=== PATIENT | female | born 1990 | race Caucasian/White ===

== ENCOUNTER 2023-11-08 11:44 | Emergency (ER) | payer OTHER ==
[2023-11-08 11:59] VITALS: RESP 18; TEMP 98.7; BMI 28.0
[2023-11-08] MEDS ORDERED: ACETAMINOPHEN INJECTION 100 ML IVPB ONE (12:58)
[2023-11-08 13:00] LABS: BASO % 0.7 % (0-2.0); HEMATOCRIT 29.1 % (32.4-45.2); HEMOGLOBIN 9.3 GM/dL (10.7-15.3); LYMPH % 21.8 % (8-40); MCH 24.3 pg (25.7-33.7); MEAN CELL VOLUME 75.9 fl (80-96); MEAN PLT VOLUME 7.7 fl (7.5-11.1); MONO % 5.2 % (3.8-10.2); NEUT % 71.3 % (42.8-82.8); PLATELET COUNT 229 10^3/uL (134-434); RBC 3.84 M/mm3 (3.60-5.2); WHITE BLOOD COUNT 6.6 K/mm3 (4.0-10.0)
[2023-11-08 13:01] LABS: EPI CELLS >36 /uL (0-25.1); HYALINE CASTS 2 /uL (0-3.1); PH,URINE 6.5 (5.0-8.0); URINE APPEARANCE CLOUDY; URINE BACTERIA 81 /uL (0-1359); URINE BILIRUBIN NEGATIVE (NEGATIVE); URINE COLOR YELLOW; URINE GLUCOSE (UA) NEGATIVE (NEGATIVE); URINE KETONE TRACE (NEGATIVE); URINE LEUK ESTERASE 1+ (NEGATIVE); URINE NITRITE NEGATIVE (NEGATIVE); URINE PROTEIN NEGATIVE (NEGATIVE); URINE RBC 18 /uL (0-23.9); URINE WBC 81 /uL (0-25.8)
[2023-11-08] MEDS: ACETAMINOPHEN 1000 MG/100 ML BAG IVPB ONE (13:07)
[2023-11-08] MEDS: DEXTROSE 5%-NORMAL SALINE 1,000 ML IV ONE (13:07)
[2023-11-08 13:23] LABS: ACTIVATED PTT 26.5 SECONDS (25.2-36.5); INR 1.01 (0.83-1.09); PROTHROMBIN TIME (PATIENT) 11.4 SEC (9.7-13.0)
[2023-11-08 13:31] LABS: POTASSIUM 3.8 mmol/L (3.5-5.1)
[2023-11-08 13:33] LABS: ALBUMIN 3.2 g/dl (3.4-5.0); BLOOD UREA NITROGEN 9.8 mg/dL (7-18); CALCIUM 9.2 mg/dL (8.5-10.1); MAGNESIUM 1.9 mg/dL (1.8-2.4)
[2023-11-08 13:36] LABS: CREATININE 0.5 mg/dL (0.55-1.3)
[2023-11-08 13:38] LABS: BILIRUBIN,TOTAL 0.3 mg/dL (0.2-1); TOT PROT 6.8 g/dl (6.4-8.2)
[2023-11-08 13:44] LABS: EPI CELLS >36 /uL (0-25.1); HYALINE CASTS 2 /uL (0-3.1); PH,URINE 6.5 (5.0-8.0); URINE APPEARANCE CLOUDY; URINE BACTERIA 77 /uL (0-1359); URINE BILIRUBIN NEGATIVE (NEGATIVE); URINE COLOR YELLOW; URINE GLUCOSE (UA) NEGATIVE (NEGATIVE); URINE KETONE TRACE (NEGATIVE); URINE LEUK ESTERASE 1+ (NEGATIVE); URINE NITRITE NEGATIVE (NEGATIVE); URINE PROTEIN NEGATIVE (NEGATIVE); URINE RBC 20 /uL (0-23.9); URINE WBC 73 /uL (0-25.8)
[2023-11-08] MEDS ORDERED: CEPHALEXIN MONOHYDRATE 500 MG CAPSULE (UD) ONE (14:47)
[2023-11-08] MEDS: ONDANSETRON 4 MG/2 ML VIAL IVPUSH ONE (14:50)
[2023-11-08] MEDS: CEPHALEXIN MONOHYDRATE 500 MG CAPSULE (UD) PO ONE (14:50)
[2023-11-08 15:23] VITALS: BP 99/55; PULSE 68
== END 2023-11-08 15:24 | disposition home or self-care (01) ==
LOC: JER 11:44
PROC: 3E033NZ Introduction of Analgesics, Hypnotics, Sedatives into Peripheral Vein, Percutaneous Approach (ICD-10-PCS; principal; 2023-11-08)
PROC: 3E0337Z Introduction of Electrolytic and Water Balance Substance into Peripheral Vein, Percutaneous Approach (ICD-10-PCS; 2023-11-08)
DX: O21.0 Mild hyperemesis gravidarum (principal); O26.891 Other specified pregnancy related conditions, first trimester; R19.7 Diarrhea, unspecified; Z3A.12 12 weeks gestation of pregnancy
CPT/HCPCS: 36415; 80053; 81003; 83735; 85025; 85610; 85730; 86850; 86900; 86901; 87086; 93005; 93010; 99284-25; J0131

== ENCOUNTER 2023-12-13 16:55 | Emergency (ER) | payer OTHER ==
[2023-12-13 17:01] VITALS: BMI 31.8
[2023-12-13] MEDS: SODIUM CHLORIDE 0.9% 500 ML INFUS.BAG IV ONE (17:51)
[2023-12-13 18:15] LABS: BASO % 0.9 % (0-2.0); EOS % 1.7 % (0-4.5); HEMATOCRIT 29.8 % (32.4-45.2); HEMOGLOBIN 9.4 GM/dL (10.7-15.3); LYMPH % 25.1 % (8-40); MCH 23.8 pg (25.7-33.7); MCHC 31.4 g/dl (32.0-36.0); MEAN CELL VOLUME 75.8 fl (80-96); MEAN PLT VOLUME 7.6 fl (7.5-11.1); NEUT % 66.3 % (42.8-82.8); PLATELET COUNT 245 10^3/uL (134-434); RBC 3.93 M/mm3 (3.60-5.2); RDW 17.3 % (11.6-15.6); WHITE BLOOD COUNT 9.2 K/mm3 (4.0-10.0)
[2023-12-13 18:20] LABS: INR 0.96 (0.83-1.09)
[2023-12-13 18:33] LABS: POTASSIUM 3.8 mmol/L (3.5-5.1)
[2023-12-13 18:35] LABS: ALBUMIN 3.1 g/dl (3.4-5.0); BLOOD UREA NITROGEN 8.3 mg/dL (7-18); CALCIUM 8.9 mg/dL (8.5-10.1)
[2023-12-13 18:38] LABS: CREATININE 0.4 mg/dL (0.55-1.3)
[2023-12-13 18:40] LABS: BILIRUBIN,TOTAL 0.2 mg/dL (0.2-1); TOT PROT 7.1 g/dl (6.4-8.2)
[2023-12-13 23:50] VITALS: BP 98/61; PULSE 66; RESP 18; TEMP 97.6
[2023-12-14] MEDS ORDERED: ACETAMINOPHEN 325 MG TABLET (FP) ONE (00:43)
[2023-12-14] MEDS: ACETAMINOPHEN 500 MG TABLET (FP) PO STA (00:46)
== END 2023-12-14 01:43 | disposition home or self-care (01) ==
LOC: JER 16:55
DX: O26.892 Other specified pregnancy related conditions, second trimester (principal); R10.31 Right lower quadrant pain; O21.9 Vomiting of pregnancy, unspecified; Z3A.18 18 weeks gestation of pregnancy
CPT/HCPCS: 36415; 72195-TC; 74181-TC; 76801-TC; 76815; 80053; 83690; 85025; 85610; 86850; 86900; 86901; 99285-25

== ENCOUNTER 2024-01-22 17:44 | Emergency (ER) | payer OTHER ==
[2024-01-22 17:56] VITALS: BMI 30.6
[2024-01-22 19:07] VITALS: BP 103/58; PULSE 75; RESP 20; TEMP 98.2
[2024-01-22 20:17] LABS: EPI CELLS 10 /uL (0-25.1); HYALINE CASTS 0 /uL (0-3.1); URINE APPEARANCE CLEAR; URINE BACTERIA 629 /uL (0-1359); URINE BILIRUBIN NEGATIVE (NEGATIVE); URINE COLOR YELLOW; URINE GLUCOSE (UA) NEGATIVE (NEGATIVE); URINE KETONE NEGATIVE (NEGATIVE); URINE LEUK ESTERASE 1+ (NEGATIVE); URINE NITRITE NEGATIVE (NEGATIVE); URINE PROTEIN NEGATIVE (NEGATIVE); URINE RBC 4 /uL (0-23.9); URINE WBC 29 /uL (0-25.8)
== END 2024-01-22 21:10 | disposition home or self-care (01) ==
LOC: JER 17:44
DX: O26.892 Other specified pregnancy related conditions, second trimester (principal); R10.32 Left lower quadrant pain; R10.2 Pelvic and perineal pain; Z3A.23 23 weeks gestation of pregnancy
CPT/HCPCS: 81003; 99283-25

== ENCOUNTER 2024-05-05 20:15 | Inpatient (IN) | payer OTHER ==
[2024-05-05 21:45] VITALS: BMI 35.4
[2024-05-05] MEDS: DEXTROSE 5%-LACTATED RINGERS 1,000 ML IV SCH (21:45)
[2024-05-05 22:20] LABS: BASO % 0.4 % (0-2.0); EOS % 1.1 % (0-4.5); HEMATOCRIT 26.8 % (32.4-45.2); HEMOGLOBIN 8.3 GM/dL (10.7-15.3); LYMPH % 26.2 % (8-40); MCH 25.3 pg (25.7-33.7); MCHC 31.1 g/dl (32.0-36.0); MEAN CELL VOLUME 81.4 fl (80-96); MONO % 4.4 % (3.8-10.2); NEUT % 67.9 % (42.8-82.8); PLATELET COUNT 93 10^3/uL (134-434); RBC 3.29 M/mm3 (3.60-5.2); WHITE BLOOD COUNT 7.5 K/mm3 (4.0-10.0)
[2024-05-05 22:33] LABS: INR 0.91 (0.83-1.09); PROTHROMBIN TIME (PATIENT) 10.5 SEC (9.7-13.0)
[2024-05-05 22:35] LABS: ACTIVATED PTT 29.8 SECONDS (25.2-36.5)
[2024-05-05 22:40] LABS: URINE APPEARANCE CLEAR; URINE COLOR YELLOW
[2024-05-05 22:41] LABS: PH,URINE 6.5 (5.0-8.0); URINE BILIRUBIN NEGATIVE (NEGATIVE); URINE GLUCOSE (UA) NEGATIVE (NEGATIVE); URINE KETONE NEGATIVE (NEGATIVE); URINE LEUK ESTERASE 1+ (NEGATIVE); URINE NITRITE NEGATIVE (NEGATIVE); URINE PROTEIN 100 (NEGATIVE)
[2024-05-05 22:48] LABS: POTASSIUM 3.9 mmol/L (3.5-5.1)
[2024-05-05 22:50] LABS: CALCIUM 7.8 mg/dL (8.5-10.1)
[2024-05-05 22:51] LABS: BLOOD UREA NITROGEN 10.9 mg/dL (7-18)
[2024-05-05 22:54] LABS: CREATININE 0.5 mg/dL (0.55-1.3)
[2024-05-05 22:56] LABS: BILIRUBIN,TOTAL 0.2 mg/dL (0.2-1); TOT PROT 5.1 g/dl (6.4-8.2)
[2024-05-06] MEDS ORDERED: SODIUM CHLORIDE 0.9% P/F 10 ML VIAL IJ ONE (00:03)
[2024-05-06] MEDS ORDERED: ceFAZolin SODIUM 1 GM VIAL ONE (00:03)
[2024-05-06] MEDS ORDERED: DEXAMETHASONE SOD PHOSPHATE 4 MG/1 ML VIAL ONE (00:03)
[2024-05-06] MEDS ORDERED: ONDANSETRON 4 MG/2 ML VIAL ONE (00:03)
[2024-05-06] MEDS ORDERED: KETOROLAC TROMETHAMINE 30 MG/1 ML VIAL ONE (00:03)
[2024-05-06] MEDS ORDERED: OXYTOCIN 10 UNITS/ML VIAL ONE ×2 (00:03→09:27)
[2024-05-06] MEDS ORDERED: METOCLOPRAMIDE HCL INJECTION 10 MG/2 ML VIAL ONE (00:03)
[2024-05-06] MEDS: CITRIC ACID/SODIUM CITRATE 30 ML UNIT-DOSE CUP PO ONE (05:20)
[2024-05-06] MEDS ORDERED: morphine SULFATE (PF) 1 MG/2 ML SYRINGE ONE (06:08)
[2024-05-06] MEDS ORDERED: FENTANYL CITRATE/PF 50 MCG/ML VIAL ONE (06:08)
[2024-05-06] MEDS: OXYTOCIN 20 UNITS in 0.9% NS 20 UNIT/1,000 ML INFUS.BAG IV SCH (08:00)
[2024-05-06] MEDS ORDERED: ONDANSETRON 4 MG/2 ML VIAL IVPUSH PRN (08:00)
[2024-05-06 08:33] LABS: CORD BASE EXCESS -5.2 mmol/L (0-2); CORD HCO3 22.1 mmHg (20-29); CORD PCO2 48.6 mmHg (30-78); CORD pH 7.275 (7.14-7.44)
[2024-05-06 08:37] LABS: CORD HCO3 23.8 mmHg (20-29); CORD PCO2 65.1 mmHg (30-78); CORD pH 7.181 (7.14-7.44)
[2024-05-06 08:40] LABS: BASO % 0.5 % (0-2.0); EOS % 0.9 % (0-4.5); HEMATOCRIT 26.1 % (32.4-45.2); HEMOGLOBIN 8.1 GM/dL (10.7-15.3); LYMPH % 25.3 % (8-40); MCHC 31.2 g/dl (32.0-36.0); MEAN CELL VOLUME 83.4 fl (80-96); MEAN PLT VOLUME 9.1 fl (7.5-11.1); MONO % 2.9 % (3.8-10.2); NEUT % 70.4 % (42.8-82.8); PLATELET COUNT 82 10^3/uL (134-434); RBC 3.13 M/mm3 (3.60-5.2); RDW 24.7 % (11.6-15.6); WHITE BLOOD COUNT 6.3 K/mm3 (4.0-10.0)
[2024-05-06] MEDS ORDERED: OXYTOCIN 20 UNITS in 0.9% NS 20 UNIT/1,000 ML INFUS.BAG IV ONE ×2 (09:06→10:00)
[2024-05-06] MEDS: OXYTOCIN 30 UNITS in 0.9% NS 30 UNIT/500 ML INFUS.BAG IVPB ONE (09:30)
[2024-05-06] MEDS: METHYLERGONOVINE MALEATE 0.2 MG/1 ML AMP IM ONE (09:53)
[2024-05-06] MEDS: OXYTOCIN 30 UNITS in 0.9% NS 30 UNIT/500 ML INFUS.BAG IVPB SCH ×2 (10:00)
[2024-05-06 10:21] LABS: BASO % 1.3 % (0-2.0); EOS % 0.4 % (0-4.5); HEMATOCRIT 25.7 % (32.4-45.2); HEMOGLOBIN 8.1 GM/dL (10.7-15.3); LYMPH % 12.4 % (8-40); MCH 25.9 pg (25.7-33.7); MCHC 31.6 g/dl (32.0-36.0); MEAN CELL VOLUME 81.9 fl (80-96); MEAN PLT VOLUME 9.2 fl (7.5-11.1); MONO % 1.5 % (3.8-10.2); NEUT % 84.4 % (42.8-82.8); PLATELET COUNT 86 10^3/uL (134-434); RBC 3.13 M/mm3 (3.60-5.2); RDW 24.3 % (11.6-15.6); WHITE BLOOD COUNT 8.4 K/mm3 (4.0-10.0)
[2024-05-06 10:29] LABS: INR 0.89 (0.83-1.09); PROTHROMBIN TIME (PATIENT) 10.1 SEC (9.7-13.0)
[2024-05-06 11:05] VITALS: RESP 18
[2024-05-06] MEDS: OXYTOCIN IVPB SCH ×2 (14:40→14:41)
[2024-05-06] MEDS: SODIUM CHLORIDE IVPB SCH ×2 (14:40→14:41)
[2024-05-06] MEDS: OXYTOCIN 10 UNITS/ML VIAL IV ONE (14:41)
[2024-05-06] MEDS: FERROUS SO4 325 MG TABLET (FP) PO SCH (14:41)
[2024-05-06] MEDS: ACETAMINOPHEN 1000 MG/100 ML BAG IVPB ONE (14:41)
[2024-05-06] MEDS: morphine SULFATE/PF 1 MG/2 ML (2cc Syringe - QUVA) IT ONE (14:42)
[2024-05-06] MEDS: IBUPROFEN 600 MG TABLET (FP) PO PRN (15:28)
[2024-05-06] MEDS: DOCUSATE SODIUM 100 MG CAPSULE (FP) PO PRN (21:23)
[2024-05-07 08:02] LABS: BASO % 0.4 % (0-2.0); EOS % 0.5 % (0-4.5); HEMATOCRIT 26.5 % (32.4-45.2); HEMOGLOBIN 8.4 GM/dL (10.7-15.3); LYMPH % 14.9 % (8-40); MCH 26.2 pg (25.7-33.7); MCHC 31.6 g/dl (32.0-36.0); MEAN CELL VOLUME 83.2 fl (80-96); MEAN PLT VOLUME 9.2 fl (7.5-11.1); MONO % 2.9 % (3.8-10.2); NEUT % 81.3 % (42.8-82.8); PLATELET COUNT 82 10^3/uL (134-434); RBC 3.19 M/mm3 (3.60-5.2); RDW 23.7 % (11.6-15.6); WHITE BLOOD COUNT 11.7 K/mm3 (4.0-10.0)
[2024-05-07] MEDS: ACETAMINOPHEN 325 MG TABLET (FP) PO PRN (08:06)
[2024-05-07] MEDS: oxyCODONE HCL 5 MG TABLET PO PRN (13:57)
[2024-05-07] MEDS: FLU VACCINE (FLULAVAL) PF 45 MCG/0.5 ML SYRINGE 2024-2025 IM ONE (17:54)
[2024-05-07] MEDS: IRON SUCROSE INJECTION 200 MG in SODIUM CHLORIDE 100 ML IVPB ONE (19:00)
[2024-05-08] MEDS: FLU VACCINE (FLULAVAL) PF 45 MCG/0.5 ML SYRINGE 2024-2025 IM ONE (18:08)
[2024-05-09 08:23] LABS: BASO % 0.3 % (0-2.0); EOS % 1.3 % (0-4.5); HEMATOCRIT 27.6 % (32.4-45.2); HEMOGLOBIN 8.9 GM/dL (10.7-15.3); LYMPH % 13.8 % (8-40); MCH 26.8 pg (25.7-33.7); MCHC 32.3 g/dl (32.0-36.0); MEAN PLT VOLUME 8.4 fl (7.5-11.1); MONO % 2.8 % (3.8-10.2); NEUT % 81.8 % (42.8-82.8); PLATELET COUNT 120 10^3/uL (134-434); RBC 3.33 M/mm3 (3.60-5.2)
[2024-05-09 09:21] VITALS: BP 131/60; PULSE 88; TEMP 98
[2024-05-09 10:29] LABS: ANISOCYTOSIS 2+; MACROCYTOSIS 1+
== END 2024-05-09 14:55 | disposition home or self-care (01) | DRG 540 ==
LOC: JLDR 20:15 → J3W 05-06 14:20
PROVIDERS: ADMIT Obstetrics & Gynecology Maternal & Fetal Medicine; ATTEND Obstetrics & Gynecology Maternal & Fetal Medicine
PROC: 10D00Z1 Extraction of Products of Conception, Low, Open Approach (ICD-10-PCS; principal; 2024-05-06)
PROC: 30233N1 Transfusion of Nonautologous Red Blood Cells into Peripheral Vein, Percutaneous Approach (ICD-10-PCS; 2024-05-06)
DX: O14.14 Severe pre-eclampsia complicating childbirth (principal); O99.12 Other diseases of the blood and blood-forming organs and certain disorders involving the immune mechanism complicating childbirth; D69.6 Thrombocytopenia, unspecified; D68.61 Antiphospholipid syndrome; O72.1 Other immediate postpartum hemorrhage; O99.02 Anemia complicating childbirth; D64.9 Anemia, unspecified; Z3A.38 38 weeks gestation of pregnancy; Z37.0 Single live birth
CPT/HCPCS: 36415; 36430; 36600; 59409; 80053; 81003; 82803; 85025; 85610; 85730; 86780; 86922; 87340; 88307-TC; 90656; 94010; G0008; J1756; P9058

== ENCOUNTER 2024-05-19 08:39 | Emergency (ER) | payer OTHER ==
[2024-05-19 08:58] VITALS: BP 129/77; PULSE 75; RESP 20; TEMP 98.5; BMI 36.1
[2024-05-19] MEDS ORDERED: LORATADINE 10 MG TABLET ONE (09:48)
[2024-05-19] MEDS: LORATADINE 10 MG TABLET PO ONE (09:49)
== END 2024-05-19 10:26 | disposition home or self-care (01) ==
LOC: JER 08:39
DX: O90.89 Other complications of the puerperium, not elsewhere classified (principal); R21 Rash and other nonspecific skin eruption
CPT/HCPCS: 99283-25